=== PATIENT | male | born 1975 | race Caucasian/White ===

== ENCOUNTER 2018-09-08 18:08 | Emergency (ER) | payer SELFPAY ==
[~2018-09-08] VITALS: Ht 177.8 cm; Wt 88.5 kg
[2018-09-08] MEDS ORDERED: IOHEXOL 350 MG/ML 100 ML (OMNIPAQUE 350) VIAL IV ONE (19:00)
[2018-09-08] MEDS ORDERED: HOLD METFORMIN - RECEIVED CONTRAST 20 ML VIAL IV SCH (19:00)
[2018-09-08] MEDS ORDERED: NS 100 ML (IVPB) BAG IV ONE (19:00)
[2018-09-08] MEDS ORDERED: CATHETER FLUSH 10 ML SYR IV PRN (19:00)
[2018-09-08 19:19] LABS: MEAN CORPUSCULAR HEMOGLOBIN 37 PG (25-34); WHITE BLOOD COUNT 6.9 10^3/uL (4.3-11.0)
[2018-09-08 19:20] LABS: BASOPHILS # (AUTO) 0.1 10^3/uL (0.0-0.1); BASOPHILS % (AUTO) 1 % (0-10); EOSINOPHILS # (AUTO) 0.1 10^3/uL (0.0-0.3); EOSINOPHILS % (AUTO) 2 % (0-10); HEMATOCRIT 45 % (40-54); LYMPHOCYTES # (AUTO) 1.3 X 10^3 (1.0-4.0); LYMPHOCYTES % (AUTO) 19 % (12-44); MEAN CORPUSCULAR HGB CONC 36 G/DL (32-36); MEAN CORPUSCULAR VOLUME 103 FL (80-99); MEAN PLATELET VOLUME 9.4 FL (7.4-10.4); MONOCYTES # (AUTO) 0.6 X 10^3 (0.0-1.0); MONOCYTES % (AUTO) 8 % (0-12); NEUTROPHILS # (AUTO) 4.7 X 10^3 (1.8-7.8); NEUTROPHILS % (AUTO) 69 % (42-75); PLATELET COUNT 235 10^3/uL (130-400)
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
[2018-09-08 19:44] LABS: CARBON DIOXIDE 20 MMOL/L (21-32); CHLORIDE 101 MMOL/L (98-107); POTASSIUM 3.9 MMOL/L (3.6-5.0); SODIUM 140 MMOL/L (135-145)
[2018-09-08 19:45] LABS: ALANINE AMINOTRANSFERASE 62 U/L (0-55); ALKALINE PHOSPHATASE 81 U/L (40-136); BILIRUBIN,TOTAL 1.5 MG/DL (0.1-1.0); BUN/CREATININE RATIO 9; CALCIUM 9.5 MG/DL (8.5-10.1); CREATININE SERUM 1.39 MG/DL (0.60-1.30); GFR ESTIMATED 56; GLUCOSE 95 MG/DL (70-105); TOTAL PROTEIN 7.7 GM/DL (6.4-8.2)
[2018-09-08 19:46] LABS: ALBUMIN 4.7 GM/DL (3.2-4.5); LIPASE 73 U/L (8-78)
[2018-09-08 20:01] LABS: CLARITY,URINE CLOUDY; COLOR,URINE AMBER; GLUCOSE, URINE (UA) NEGATIVE (NEGATIVE); PROTEIN,URINE 3+ (NEGATIVE)
[2018-09-08 20:02] LABS: BACTERIA,URINE TRACE /HPF; BILIRUBIN,URINE 1+ (NEGATIVE); KETONES,URINE TRACE (NEGATIVE); LEUKOCYTE ESTERASE ,URINE 1+ (NEGATIVE); NITRITE,URINE NEGATIVE (NEGATIVE); RBC,URINE >100 /HPF; SQUAMOUS EPITHELIAL CELL,UR 0-2 /HPF; WBC,URINE >100 /HPF
[2018-09-08 20:03] LABS: CALCIUM OXALATE CRYSTALS,UR FEW /LPF
[2018-09-08] MEDS ORDERED: cefTRIAXone FOR IV USE 1,000 MG in WATER (STERILE) FOR INJECTION 10 ML IV ONE (20:15)
[2018-09-08] MEDS ORDERED: NS IV 1000 ML 1,000 ML IV SCH (20:15)
[2018-09-08] MEDS ORDERED: morphine INJ 10 MG/ML 1ML (SYR OR VIAL) IVP STA (20:16)
--- NOTE | 2018-09-08 20:20 | ED Back Pain ---
General Chief Complaint: Trauma-Non Activation Stated Complaint: PAIN IN STOMACH/GROIN AREA Nursing Triage Note: A horse fell on him one week ago and "smashed groin area." Has been having increasing pain in left thigh and left lower abdomen and groin area since that time. Has been taking 800 mg ibuprofen for pain with no relief. Has also been using ice on area which is helpful with the pain. Pain is worse with movement. Nursing Sepsis Screen: No Definite Risk Source of Information: Patient Exam Limitations: No Limitations History of Present Illness Date Seen by Provider: September 08, 2018 Time Seen by Provider: 19:15 Initial Comments Patient is a 42-year-old male who presents with flank pain rating to left pelvis , groin. Symptom onset was 4 days ago. Patient states he first noticed the symptoms after falling off a horse and the horse rolling on top of him a week ago. Patient did not seek medical care at that time. Patient has chest pain, shortness breath, abdominal pain, or extremity pain. Pain is rated moderate to severe. Patient is unable to find position of comfort. No medications or therapies taken prior to ED arrival. Timing/Duration: 5-6 Days Severity: Moderate, Severe Pain/Injury Location: Back, Pelvis Method of Injury: Fall Associated Symptoms: denies symptoms; No fever Allergies and Home Medications Allergies Coded Allergies: No Known Drug Allergies (Unverified , 09/08/18) Patient Home Medication List Home Medication List Reviewed: Yes Review of Systems Constitutional: see HPI EENTM: no symptoms reported Respiratory: no symptoms reported Cardiovascular: no symptoms reported Gastrointestinal: no symptoms reported Genitourinary: other (dark urine) Skin: no symptoms reported, see HPI Psychiatric/Neurological: No Symptoms Reported, See HPI Past Xefnrkw-[id number]-Uylqcb Hx Past Med/Social Hx: Reviewed Nursing Past Med/Soc Hx Patient Social History Alcohol Use: Regular Use Alcohol Beverage of Choice: Whiskey Recreational Drug Use: No Smoking Status: Never a Smoker 2nd Hand Smoke Exposure: No Recent Foreign Travel: No Contact w/Someone Who Travel: No Recent Infectious Disease Expo: No Physical Abuse: No Sexual Abuse: No Mistreated: No Fear: No Physical Exam Vital Signs Vital Signs - First Documented 09/08/18 18:23 Temp 97.0 Pulse 94 Resp 22 B/P (MAP) 142/100 (114) Pulse Ox 98 Capillary Refill : Less Than 3 Seconds Height, Weight, BMI Height: 5'10.00" Weight: 195lbs. oz. 88.187459sz; BMI Method:Stated General Appearance: WD/WN, Mild Distress HEENT: PERRL/EOMI, TMs Normal, Normal ENT Inspection Neck: Full Range of Motion, Normal Inspection Cardiovascular: Regular Rate, Rhythm, No Edema Respiratory: Lungs Clear Gastrointestinal: Normal Bowel Sounds, No Organomegaly, No Pulsatile Mass Genital/Rectal: Normal Genital Exam Back: Normal Inspection, No CVA Tenderness Extremity: Normal Inspection, Normal Range of Motion, Non Tender Neurologic/Psychiatric: Alert, Oriented x3 Skin: Normal Color, Warm/Dry Progress/Results/Core Measures Results/Orders Lab Results Laboratory Tests Test 09/08/18 19:10 09/08/18 19:42 Range/Units White Blood Count 6.9 4.3-11.0 10^3/uL Red Blood Count 4.33 L 4.35-5.85 10^6/uL Hemoglobin 16.0 13.3-17.7 G/DL Hematocrit 45 40-54 % Mean Corpuscular Volume 103 H 80-99 FL Mean Corpuscular Hemoglobin 37 H 25-34 PG Mean Corpuscular Hemoglobin Concent 36 32-36 G/DL Red Cell Distribution Width 13.0 10.0-14.5 % Platelet Count 235 130-400 10^3/uL Mean Platelet Volume 9.4 7.4-10.4 FL Neutrophils (%) (Auto) 69 42-75 % Lymphocytes (%) (Auto) 19 12-44 % Monocytes (%) (Auto) 8 0-12 % Eosinophils (%) (Auto) 2 0-10 % Basophils (%) (Auto) 1 0-10 % Neutrophils # (Auto) 4.7 1.8-7.8 X 10^3 Lymphocytes # (Auto) 1.3 1.0-4.0 X 10^3 Monocytes # (Auto) 0.6 0.0-1.0 X 10^3 Eosinophils # (Auto) 0.1 0.0-0.3 10^3/uL Basophils # (Auto) 0.1 0.0-0.1 10^3/uL Sodium Level 140 135-145 MMOL/L Potassium Level 3.9 3.6-5.0 MMOL/L Chloride Level 101 98-107 MMOL/L Carbon Dioxide Level 20 L 21-32 MMOL/L Anion Gap 12 5-14 MMOL/L Blood Urea Nitrogen 12 7-18 MG/DL Creatinine 1.39 H 0.60-1.30 MG/DL Estimat Glomerular Filtration Rate 56 BUN/Creatinine Ratio 9 Glucose Level 95 70-105 MG/DL Calcium Level 9.5 8.5-10.1 MG/DL Corrected Calcium 8.5-10.1 MG/DL Total Bilirubin 1.5 H 0.1-1.0 MG/DL Aspartate Amino Transf (AST/SGOT) 83 H 5-34 U/L Alanine Aminotransferase (ALT/SGPT) 62 H 0-55 U/L Alkaline Phosphatase 81 40-136 U/L Total Protein 7.7 6.4-8.2 GM/DL Albumin 4.7 H 3.2-4.5 GM/DL Lipase 73 8-78 U/L Urine Color TASNEEM H Urine Clarity CLOUDY Urine pH 6.0 5-9 Urine Specific [place] >=1.030 1.016-1.022 Urine Protein 3+ H NEGATIVE Urine Glucose (UA) NEGATIVE NEGATIVE Urine Ketones TRACE H NEGATIVE Urine Nitrite NEGATIVE NEGATIVE Urine Bilirubin 1+ H NEGATIVE Urine Urobilinogen 1.0 NORMAL MG/DL Urine Leukocyte Esterase 1+ H NEGATIVE Urine RBC (Auto) 3+ H NEGATIVE Urine RBC >100 H /HPF Urine WBC >100 H /HPF Urine Squamous Epithelial Cells 0-2 /HPF Urine Crystals PRESENT H /LPF Urine Calcium Oxalate Crystals FEW H /LPF Urine Bacteria TRACE /HPF Urine Casts NONE /LPF Urine Mucus NONE /LPF Urine Culture Indicated YES My Orders Orders - EDGAR QUEEN DO Cbc With Automated Diff (09/08/18 18:44) Comprehensive Metabolic Panel (09/08/18 18:44) Lipase (09/08/18 18:44) Ua Culture If Indicated (09/08/18 18:44) Ct Abdomen/Pelvis W (09/08/18 18:51) Iohexol Injection (Omnipaque 350 Mg/Ml 1 (09/08/18 19:00) Received Contrast (Hold Metformin- Contr (09/08/18 19:00) Sodium Chloride Flush (Catheter Flush Sy (09/08/18 19:00) Ns (Ivpb) (Sodium Chloride 0.9% Ivpb Bag (09/08/18 19:00) Creatine Kinase (09/08/18 19:45) Urine Culture (09/08/18 19:42) Ns Iv 1000 Ml (Sodium Chloride 0.9%) (09/08/18 20:15) Ceftriaxone For Iv Use (Rocephin For I (09/08/18 20:15) Blood Culture (09/08/18 20:09) Ketorolac Injection (Toradol Injection) (09/08/18 20:30) Morphine Injection (Morphine Injection (09/08/18 20:16) Ondansetron Injection (Zofran Injectio (09/08/18 20:30) Blood Culture (09/08/18 20:29) Medications Given in ED Current Medications Medications Dose Ordered Sig/Rudy Route Start Time Stop Time Status Last Admin Dose Admin Iohexol 100 ml ONCE ONCE IV 09/08/18 19:00 09/08/18 19:01 DC 09/08/18 19:24 100 ML Sodium Chloride 10 ml NEEDED PRN IV 09/08/18 19:00 09/08/18 19:24 10 ML Sodium Chloride 100 ml ONCE ONCE IV 09/08/18 19:00 09/08/18 19:01 DC 09/08/18 19:24 100 ML Vital Signs/I&O 09/08/18 18:23 Temp 97.0 Pulse 94 Resp 22 B/P (MAP) 142/100 (114) Pulse Ox 98 Blood Pressure Mean: 114 Departure Communication (Admissions) CT abdomen and pelvis with IV contrast: 12 mm proximal ureteral/renal pelvic stone with moderate hydronephrosis and periureteral stranding. IV fluids, pain medication and antibiotics given. Patient accepted for transfer [facility] at. Impression Primary Impression: Back pain Additional Impression: Ureteral obstruction, left Disposition: [facility] Condition: Stable Transfer Time Spoke to Accepting Phy: 20:42 Transfer Progress Notes Patient accepted by Dr. Milton Lee Method of Transfer: Private Vehicle Departure-Patient Inst. Referrals: LEAH VENCES DO (PCP/Family) Primary Care Physician EDGAR QUEEN DO September 08, 2018 20:20
[2018-09-08] MEDS ORDERED: KETOROLAC 30 MG/ML VIAL IVP ONE (20:30)
[2018-09-08] MEDS ORDERED: ONDANSETRON 4 MG/2 ML (SDV) Z0FRAN IVP ONE (20:30)
--- NOTE | 2018-09-08 20:45 | NUR ---
Patient refused pain medication at this time. Patient currently rates pain at a 0.
[2018-09-08 21:29] VITALS: BP 130/96
--- NOTE | 2018-09-08 21:29 | NUR ---
Patient was accepted to [facility] and report was given to Areli CARMEN at 2110. Patient refuses to go by EMS. Patient wants to go POV. Risks and benefits are explained and patient acknowledges his understanding verbally. IV is removed and paperwork is signed.
== END 2018-09-08 21:29 | disposition short-term general hospital (02) ==
LOC: ER FS 18:11
DX: M54.5 Low back pain (principal); N13.1 Hydronephrosis with ureteral stricture, not elsewhere classified; V80.010A Animal-rider injured by fall from or being thrown from horse in noncollision accident, initial encounter
CPT/HCPCS: 36415; 74177; 80053; 81000; 82550; 83690; 85025; 87040; 87088; 96374

== ENCOUNTER 2021-05-23 05:25 | Emergency (ER) | payer SELFPAY ==
[~2021-05-23] VITALS: Ht 178 cm; Wt 85.7 kg
[2021-05-23] MEDS ORDERED: ROCURONIUM 10 MG/ML 5 ML SYRINGE IV ONE (05:29)
[2021-05-23] MEDS ORDERED: ETOMIDATE IV SOLN 20 MG/10 ML VIAL IV ONE (05:29)
[2021-05-23] MEDS ORDERED: MIDAZOLAM 5 MG/5 ML (VERSED) VIAL IJ ONE (05:29)
--- OUTSIDE RECORDS SUMMARY | 2021-05-23 05:32 | XMS REPORT | Encounter Summary ---
Author Author [facility] Organization [facility] Address Unknown Phone Unavailable Care Team Providers Care Veneer Glue Spreader Name Role Phone JeronimoRey cifuentes DO [phone] JeronimoRey cifuentes PCP Reason for Visit * Reason Onset Date Comments Referral 04/30/2021 Encounter Details Care Team Description Date Type Department Unknown, Unknown, MD Referral 04/30/2021 Telephone Hepatology: Main [facility], [facility] [address] [place] [address] Social History Date Tobacco Use Types Packs/Day Years Used Former Smoker Cigarettes Smokeless Tobacco: Chew Current User Comments Alcohol Use Standard Drinks/Week Yes 0 (1 standard drink = 0.6 o z pure alcohol) Sex Assigned at Date Recorded Not on file documented as of this encounter Miscellaneous Notes * Telephone Encounter - Lisa Vang - 05/19/2021 2:00 PM [employer] Called [phone] - # not in Service, called [phone] - Person who answere d said John does not live there. Called Neftali Rosalba Left message with him to fady arthur patent call me back to schedule appt. [employer] * Telephone Encounter - Meena Mario - 05/14/2021 11:57 AM [employer] READY TO SCHED NEXT AVAIL LT STONER [employer] * Telephone Encounter - Patience Pérez RN - 04/30/2021 12:17 PM [employer] Hepatology Referral Summary John Navarrete, 1975, [id number] Reason for Visit/Diagnosis: Transaminitis HPI Summary: Pt seen in f/u w/ PCP. Hx of elevated LFTs and ETOH use, whiskey before b ed. Pt reports emotional lability and insomnia. Labs: In Outside Records Scanned 04/30/21 > pg 9 CBC, CMP and Lipids Radiology/Facility: N/A Pathology/Facility: N/A Endoscopy/Facility: N/A Appointment Needs -- - Provider: Next Available, - Urgency: Next Available - Department: LTC - Other: None Insurance: No billing information found for this encounter. Provider Info -- Referring: Rey Tapia DO [address] [place] [address] PCP: Rey Tapia [address] [place] [id number] [employer] * Telephone Encounter - Meena Mario - 04/30/2021 11:56 AM [employer] Received new referral via fax. Docs scanned in 04/30.. REQ URGENT [employer] documented in this encounter Plan of Treatment Not on filedocumented as of this encounter Visit Diagnoses Not on filedocumented in this encounter Care Teams Start Date End Date Veneer Glue Spreader Relationship Specialty 04/30/21 Rey Tapia DO PCP - General [address] [address] 04/30/21 Rey Tapia DO REFERRING [address] [address] documented as of this encounter
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
[2021-05-23] MEDS ORDERED: HOLD METFORMIN - RECEIVED CONTRAST 20 ML VIAL IV SCH (05:45)
[2021-05-23] MEDS ORDERED: CATHETER FLUSH 10 ML SYR IV PRN (05:45)
[2021-05-23] MEDS ORDERED: NS IV 1000 ML 1,000 ML IV SCH (05:45)
[2021-05-23] MEDS ORDERED: NS 100 ML (IVPB) BAG IV ONE (05:45)
[2021-05-23] MEDS ORDERED: ONDANSETRON 4 MG/2 ML (SDV) Z0FRAN IV ONE (05:45)
[2021-05-23] MEDS ORDERED: IOHEXOL 350 MG/ML 100 ML (OMNIPAQUE 350) VIAL IV ONE (05:45)
[2021-05-23 05:47] LABS: HEMATOCRIT 36 % (40-54); HEMOGLOBIN 12.5 g/dL (13.3-17.7); MEAN CORPUSCULAR HEMOGLOBIN 37 pg (25-34); MEAN CORPUSCULAR HGB CONC 35 g/dL (32-36); MEAN CORPUSCULAR VOLUME 106 fL (80-99); MEAN PLATELET VOLUME 9.3 fL (9.0-12.2); PLATELET COUNT 150 10^3/uL (130-400)
[2021-05-23 05:48] LABS: BASOPHILS # (AUTO) 0.1 10^3/uL (0.0-0.1); BASOPHILS % (AUTO) 1 % (0-10); EOSINOPHILS % (AUTO) 0 % (0-10); LYMPHOCYTES % (AUTO) 8 % (12-44); MONOCYTES # (AUTO) 0.6 X 10^3 (0.0-1.0); MONOCYTES % (AUTO) 5 % (0-12); NEUTROPHILS # (AUTO) 10.1 X 10^3 (1.8-7.8); NEUTROPHILS % (AUTO) 85 % (42-75)
[2021-05-23 05:55] LABS: PROTHROMBIN TIME PATIENT 13.2 SEC (12.2-14.7)
[2021-05-23 06:03] LABS: ALANINE AMINOTRANSFERASE 94 U/L (0-55); ALBUMIN 4.5 GM/DL (3.2-4.5); ALKALINE PHOSPHATASE 395 U/L (40-136); BILIRUBIN,TOTAL 4.2 MG/DL (0.1-1.0); BUN/CREATININE RATIO 10; CALCIUM 8.9 MG/DL (8.5-10.1); CARBON DIOXIDE 23 MMOL/L (21-32); CHLORIDE 97 MMOL/L (98-107); GFR ESTIMATED 112; GLUCOSE 195 MG/DL (70-105); POTASSIUM 3.1 MMOL/L (3.6-5.0); SODIUM 142 MMOL/L (135-145)
--- NOTE | 2021-05-23 06:11 | ED General ---
General Chief Complaint: Altered Mental Status Stated Complaint: NON RESPONSIVE Nursing Triage Note: Pt presents to ED per POV, unresponsive. Staff to vehicle to help get pt into wheelchair. To ED 3, and lifted to stretcher attached to cardiac care nurse. Pt remains unresponsive. HOB up. Temperature 30.3 C. Warm blankets to pt. Source of Information: Other (significant other) Exam Limitations: Physical Impairments (pt unresponsive) History of Present Illness Date Seen by Provider: May 23, 2021 Time Seen by Provider: 05:25 Initial Comments 45-year-old male brought in by his fiance by private vehicle. 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 She stated that he did not lose consciousness. He had finished his work with the [employer] and been doing fine in the afternoon and evening. Around midnight he was awake and was not breathing right for his fiance. She stated that she never had him completely wake up for her after that and she was rubbing his back and chest to try and help his breathing. He had some emesis of frothy sputum a few times. She states that he also had urinated on himself at least twice. She had her his brother help get him to the car so that they could bring him to the emergency department. He was not helping at all and was not responsive here in the emergency department. She states that he does not take aspirin or any blood thinners. He does have a history of high cholesterol and hypothyroid. He has no known allergies as far she is aware. Associated Systoms: Nausea/Vomiting (vomiting up frothy sputum since midnight) Allergies and Home Medications Allergies Coded Allergies: No Known Drug Allergies (Unverified , 09/08/18) Patient Home Medication List Home Medication List Reviewed: Yes Review of Systems Review of Systems Constitutional: chills (cool to touch) EENTM: other (bruising to right forehead); No ear discharge, No epistaxis, No nose congestion Respiratory: No phlegm, No short of breath Cardiovascular: no symptoms reported Gastrointestinal: see HPI Genitourinary: see HPI Musculoskeletal: other (struck by cow yesterday afternoon) Skin: change in color (bruise to right forehead and left shoulder) Psychiatric/Neurological: See HPI Hematologic/Lymphatic: Denies Blood Clots, Denies Easy Bleeding, Denies Easy Bruising ROS obtained from fianc as patient was unresponsive and not able to answer que [place] Past Sdkhxbg-Xqfsgu-Ceptes Hx Past Medical History Surgery/Hospitalization HX: Hypercholesterolemia and hypothyroid Physical Exam Vital Signs Vital Signs - First Documented 05/23/21 05/23/21 05:25 06:55 Temp 30.3 Pulse 54 Resp 16 B/P (MAP) 116/56 Pulse Ox 94 O2 Delivery Ambu Bag O2 Flow Rate 15.00 Capillary Refill : Less Than 3 Seconds Height, Weight, BMI Height: 5'10.00" Weight: 195lbs. oz. 88.507142ke; 27.00 BMI Method:Stated General Appearance: Other (decreased responsiveness with sonorous respirations) Eyes: Bilateral Eye PERRL (3 mm bilaterally) HEENT: PERRL/EOMI, TMs Normal, Moist Mucous Membranes, Other (no hemotympanum, no CSF otorrhea, rhinorrhea. Negative Moncada sign/Raccoon sign) Neck: Other (when patient arrived he was moving his neck around and would move his head but was not having purposeful movements) Respiratory: Chest Non Tender, No Accessory Muscle Use, No Respiratory Distress, Decreased Breath Sounds, Other (sonorous respirations) Cardiovascular: Normal Peripheral Pulses, Bradycardia Gastrointestinal: Normal Bowel Sounds, No Pulsatile Mass, Non Tender, Soft Rectal: Deferred Extremity: No Pedal Edema, Slow Capillary Refill (3-4 seconds) Neurologic/Psychiatric: No Alert (somnolent), No Oriented x3 (not able to answer any orientation questions); Other (patient is somnolent with sonorous respirations. not having purposeful movements. not responding to painful stimu li) Skin: Cool; No Diaphoresis; Ecchymosis (right forehead, left shoulder) Comments GCS was 5 Eye was 1 Verbal 2 Motor 2 extension to pain Procedures/Interventions Reason for Intubation: Intracranial hemorrhage with decreased mental status Date of ETT Placement: May 23, 2021 Time of ETT Placement: 06:45 Intubation Method: orotracheal Tube Size: 7.5 Medications: Etomidate, Rocuronium, Versed Positive End Tide CO2: Yes Breath Sounds after Intubation: bilateral-equal Intubation Complications: oral-unsuccessful attempt (x1 Cords were not visualized on first attempt so tube not advanced.) Post Intubation Xray: Yes ETT in place with tip above claire Progress/Results/Core Measures Suspected Sepsis SIRS Temperature: Pulse: 54 Respiratory Rate: 16 Laboratory Tests 05/23/21 05:30: White Blood Count 12.0H Blood Pressure / Mean: Laboratory Tests 05/23/21 05:30: Creatinine 0.80, INR Comment 1.0, Platelet Count 150, Total Bilirubin 4.2H Results/Orders Lab Results Laboratory Tests Test 05/23/21 05:30 05/23/21 05:32 05/23/21 06:40 Range/Units White Blood Count 12.0 H 4.3-11.0 10^3/uL Red Blood Count 3.38 L 4.30-5.52 10^6/uL Hemoglobin 12.5 L 13.3-17.7 g/dL Hematocrit 36 L 40-54 % Mean Corpuscular Volume 106 H 80-99 fL Mean Corpuscular Hemoglobin 37 H 25-34 pg Mean Corpuscular Hemoglobin Concent 35 32-36 g/dL Red Cell Distribution Width 13.9 10.0-14.5 % Platelet Count 150 130-400 10^3/uL Mean Platelet Volume 9.3 9.0-12.2 fL Immature Granulocyte % (Auto) 1 % Neutrophils (%) (Auto) 85 H 42-75 % Lymphocytes (%) (Auto) 8 L 12-44 % Monocytes (%) (Auto) 5 0-12 % Eosinophils (%) (Auto) 0 0-10 % Basophils (%) (Auto) 1 0-10 % Neutrophils # (Auto) 10.1 H 1.8-7.8 X 10^3 Lymphocytes # (Auto) 1.0 1.0-4.0 X 10^3 Monocytes # (Auto) 0.6 0.0-1.0 X 10^3 Eosinophils # (Auto) 0.0 0.0-0.3 10^3/uL Basophils # (Auto) 0.1 0.0-0.1 10^3/uL Immature Granulocyte # (Auto) 0.2 H 0.0-0.1 10^3/uL Neutrophils % (Manual) 84 % Lymphocytes % (Manual) 10 % Monocytes % (Manual) 5 % Band Neutrophils 1 % Toxic Granulation 4+ Prothrombin Time 13.2 12.2-14.7 SEC INR Comment 1.0 0.8-1.4 Activated Partial Thromboplast Time 29 24-35 SEC Sodium Level 142 135-145 MMOL/L Potassium Level 3.1 L 3.6-5.0 MMOL/L Chloride Level 97 L 98-107 MMOL/L Carbon Dioxide Level 23 21-32 MMOL/L Anion Gap 22 H 5-14 MMOL/L Blood Urea Nitrogen 8 7-18 MG/DL Creatinine 0.80 0.60-1.30 MG/DL Estimat Glomerular Filtration Rate 112 BUN/Creatinine Ratio 10 Glucose Level 195 H 70-105 MG/DL Calcium Level 8.9 8.5-10.1 MG/DL Corrected Calcium 8.5 8.5-10.1 MG/DL Total Bilirubin 4.2 H 0.1-1.0 MG/DL Aspartate Amino Transf (AST/SGOT) 299 H 5-34 U/L Alanine Aminotransferase (ALT/SGPT) 94 H 0-55 U/L Alkaline Phosphatase 395 H 40-136 U/L Troponin I < 0.30 <0.30 NG/ML C-Reactive Protein 1.01 H <0.50 MG/DL Pro-B-Type Natriuretic Peptide 108.6 H <75.0 PG/ML Total Protein 8.0 6.4-8.2 GM/DL Albumin 4.5 3.2-4.5 GM/DL Serum Alcohol 218 H <10 MG/DL Glucometer 187 H 70-110 MG/DL Urine Color DARK YELLOW Urine Clarity CLEAR Urine pH 6.5 5-9 Urine Specific [place] 1.010 L 1.016-1.022 Urine Protein TRACE H NEGATIVE Urine Glucose (UA) TRACE H NEGATIVE Urine Ketones TRACE H NEGATIVE Urine Nitrite NEGATIVE NEGATIVE Urine Bilirubin 1+ H NEGATIVE Urine Urobilinogen 2.0 < = 1.0 MG/DL Urine Leukocyte Esterase NEGATIVE NEGATIVE Urine RBC (Auto) 3+ H NEGATIVE Urine RBC >100 H /HPF Urine WBC NONE /HPF Urine Squamous Epithelial Cells NONE /HPF Urine Crystals NONE /LPF Urine Bacteria TRACE /HPF Urine Casts PRESENT /LPF Urine Hyaline Casts 0-2 H /LPF Urine Mucus LARGE H /LPF Urine Culture Indicated NO Urine Opiates Screen NEGATIVE NEGATIVE Urine Oxycodone Screen NEGATIVE NEGATIVE Urine Methadone Screen NEGATIVE NEGATIVE Urine Propoxyphene Screen NEGATIVE NEGATIVE Urine Barbiturates Screen NEGATIVE NEGATIVE Ur Tricyclic Antidepressants Screen NEGATIVE NEGATIVE Urine Phencyclidine Screen NEGATIVE NEGATIVE Urine Amphetamines Screen NEGATIVE NEGATIVE Urine Methamphetamines Screen NEGATIVE NEGATIVE Urine Benzodiazepines Screen NEGATIVE NEGATIVE Urine Cocaine Screen NEGATIVE NEGATIVE Urine Cannabinoids Screen POSITIVE H NEGATIVE My Orders Orders - ENYART,VERA E MD Monitor-Rhythm Ecg Trace Only (05/23/21 05:34) Ed Iv/Invasive Line Start (05/23/21 05:34) Cbc With Automated Diff (05/23/21 05:34) Comprehensive Metabolic Panel (05/23/21 05:34) Crp Fs (05/23/21 05:34) Troponin I Fs (05/23/21 05:34) Protime With Inr (05/23/21 05:34) Partial Thromboplastin Time (05/23/21 05:34) Ekg Tracing (05/23/21 05:34) Arterial Blood Gas (05/23/21 05:34) Ns Iv 1000 Ml (Sodium Chloride 0.9%) (05/23/21 05:45) Ondansetron Injection (Zofran Injectio (05/23/21 05:45) Ct Head/Cervical Spine Wo (05/23/21 05:34) Chest 1 View Ap/Pa Only (05/23/21 05:34) Accucheck Stat ONCE (05/23/21 05:34) Ua Culture If Indicated (05/23/21 05:34) Drug Screen Stat (Urine) (05/23/21 05:34) Alcohol (05/23/21 05:34) Probnp Fs (05/23/21 05:34) [place] Cath (05/23/21 05:37) O2 (05/23/21 05:37) Ct Chest/Abdomen/Pelvis W (05/23/21 05:38) Iohexol Injection (Omnipaque 350 Mg/Ml 1 (05/23/21 05:45) Received Contrast (Hold Metformin- Contr (05/23/21 05:45) Sodium Chloride Flush (Catheter Flush Sy (05/23/21 05:45) Ns (Ivpb) (Sodium Chloride 0.9% Ivpb Bag (05/23/21 05:45) Manual Differential (05/23/21 05:30) Medications Given in ED Current Medications Medications Dose Ordered Sig/Rudy Route Start Time Stop Time Status Last Admin Dose Admin Iohexol 100 ml ONCE ONCE IV 05/23/21 05:45 05/23/21 05:48 DC 05/23/21 06:25 100 ML Ondansetron HCl 4 mg ONCE ONCE IV 05/23/21 05:45 05/23/21 05:46 DC 05/23/21 05:41 4 MG Sodium Chloride 10 ml NEEDED PRN IV 05/23/21 05:45 05/23/21 07:19 DC 05/23/21 06:26 10 ML Sodium Chloride 100 ml ONCE ONCE IV 05/23/21 05:45 05/23/21 05:48 DC 05/23/21 06:26 100 ML Vital Signs/I&O 05/23/21 05/23/21 05:25 06:55 Temp 30.3 35.8 Pulse 54 94 Resp 16 14 B/P (MAP) 116/56 Pulse Ox 94 98 O2 Delivery Ambu Bag O2 Flow Rate 15.00 Capillary Refill : Less Than 3 Seconds Point of Care Testing Finger Stick Blood Glucose: 187 Progress Note #1: Progress Note Multiple labs and imaging tests were ordered on patient arrival. Based on his history there was concern for intracranial hemorrhage and trauma. Patient was maintaining his airway on arrival with stable vital signs. Progress Note #2: Time: 05:55 Progress Note Patient was in CT scan and when I saw that he had a large amount of intracranial hemorrhage and midline shift I immediately went to talk to the fianc and family to let them know that he needed to get to a trauma center as soon as possible and to find out where he is and they wanted me to try calling. They wanted to have him try and go north towards [place]. [phone] call placed to [facility] access center and spoke with Bijal CARMEN. She connected me with Dr. Telles with the [facility] emergency department. he accepted the patient for transfer for trauma services and neurosurgery at [phone] Helicopter services were contacted but none of them would be available until after 7 AM. Local EMS [facility] was contacted to assist with the transfer to try and get him to [facility] faster.. Progress Note #3: Time: 06:45 Progress Note Patient intubated on second attempt by color worker. 7.5 ET tube was placed. Patient had equal breath sounds and positive color change with the end-tidal CO2. Tube was secured and chest x-ray help to confirm placement. It did look like it was a little high above the claire so it was advanced approximately 2 cm. NG tube was placed prior to transfer. [facility] took the patient to [facility] by ground and left the department at [phone] Labs did show that he had an elevated alcohol level. He had findings of bleeding and midline shift in his CT scan of his head. His coags were normal. He remained hemodynamically stable during his ED stay. Progress Note #4: Progress Note Shortly after patient left with EMS the radiologist called back about the CT scanning of his head. They had tried calling while I was in the room working with the patient. He notified me of the findings of large amount of intracranial hemorrhage and midline shift. No acute findings on other CT scans. Will fax reports to [facility] access center for [facility]. ECG Initial ECG Impression Date: May 23, 2021 Initial ECG Impression Time: 05:28 Initial ECG Rate: 52 Initial ECG Rhythm: Normal Sinus Initial ECG Comparisson: No Previous ECG Available Comment Sinus rhythm with a heart rate of 52 bpm. Borderline prolonged IA interval of [address] elevation. There is some artifact on the tracing. QT interval 486 ms with a QTc interval 452 ms. There is no prior tracing available for comparison. Diagnostic Imaging Diagonstic Imaging: CT Plain Films/CT/US/NM/MRI: c-spine, head Comments [facility]. [place], [place] NAME: ASHLEE RIVERA [facility] REC#: [id number] PT STATUS: REG ER : 1975 PHYSICIAN: VERA HERNANDEZ MD ADMIT DATE: 05/23/21/ER FS Draft Date of Exam:05/23/21 CT HEAD/CERVICAL SPINE WO PROCEDURE: CT head and CT cervical spine without contrast. TECHNIQUE: Multiple contiguous axial images were obtained through the brain and cervical spine without the use of intravenous contrast. Sagittal and coronal reformations through the cervical spine were then performed. Auto Exposure Controls were utilized during the CT exam to meet ALARA standards for radiation dose reduction. INDICATION: Trauma. Head and neck pain. Hit on head by a cow. FINDINGS: There is a large intra-axial hemorrhage demonstrated within the anterior aspect of the right frontal lobe that measures up to 11.3 cm AP by 7.8 cm transverse by 5.1 cm craniocaudal. There additionally is intraventricular hemorrhage demonstrated within the lateral 3rd and 4th ventricles. There is left to right midline shift secondary to the hematoma with associated subfalcine herniation. This shift measures 2.3 cm at its maximum. There is mild prominence of the left lateral ventricle, likely reflecting early entrapment. Other than the hemorrhage, there is no significant loss of bridges-white differentiation. There are a few small foci of likely subarachnoid blood overlying the high left frontal and parietal convexities. There is no identified calvarial fracture. The mastoids are clear. There is mild mucosal thickening in the left maxillary sinus. There is no air-fluid level. The orbital contents are unremarkable. Cervical spine demonstrates normal alignment. There are normal relationships of the craniocervical junction. There are normal relationships of the lateral masses at C1 and C2. The facets are normally aligned. There is no facet joint or disc space widening. The vertebral body heights are maintained. There is no acute cervical spine fracture. There are no findings of high-grade canal stenosis. The lung apices are clear. The soft tissues of the neck demonstrate no acute process. IMPRESSION: 1. Large hyperdense right frontal hematoma which appears to likely be intra-axial in location. This measures up to 11.3 x 7.8 x 5.1 cm. This results in subfalcine herniation with 2.3 cm of [id number] midline shift. 2. There is extension into the ventricular system with early developing entrapment of the left lateral ventricle. 3. Minimal subarachnoid hemorrhage demonstrated within the left frontal and parietal lobes at the high vertex. 4. No territorial loss of bridges-white differentiation. 5. No calvarial fracture. 6. No acute fracture or malalignment within the cervical spine. Dictated on workstation # [id number] Dict: 05/23/21 0623 Trans: 05/23/21 0652 [facility] [id number] Interpreted by: SACHIN FONG MD Electronically signed by: Reviewed: Reviewed by Me, Discussed w/Radiologist Diagonstic Imaging: CT Plain Films/CT/US/NM/MRI: chest, abdomen, pelvis Comments [facility] [place] [place] NAME: ASHLEE RIVERA Dolores [facility] REC#: [id number] PT STATUS: REG ER : 1975 PHYSICIAN: VERA HERNANDEZ MD ADMIT DATE: 05/23/21/ER FS Draft Date of Exam:05/23/21 CT CHEST/ABDOMEN/PELVIS W PROCEDURE: CT chest, abdomen, and pelvis with contrast. TECHNIQUE: Multiple contiguous axial images were obtained through the chest, abdomen, and pelvis after the administration of intravenous contrast. Auto Exposure Controls were utilized during the CT exam to meet ALARA standards for radiation dose reduction. INDICATION: Trauma. Chest and abdomen pain. Hit by a cow. COMPARISON made with a prior study from 09/08/2018. FINDINGS: The lungs demonstrate no findings of a pneumothorax or pleural collection. There is no dense consolidation or findings to suggest pneumonia or contusion. The thoracic aorta is unremarkable. There is no mediastinal hematoma or pericardial collection. The central pulmonary arteries demonstrate no filling defect. There are remote healed posterior fractures of the 10th and 11th ribs. No acute rib fractures are evident. There is no sternal fracture or evidence of a fracture involving the shoulder girdle. There is no glenohumeral joint dislocation. There is diffuse hepatic steatosis. There are no findings of a liver laceration or adjacent perihepatic fluid or blood. The gallbladder is nondistended. There is no biliary dilatation. The portal veins appear patent. The pancreas is unremarkable. 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 There is no splenic laceration or adjacent tanner-splenic fluid or blood. There is no adrenal hematoma. The kidneys enhance normally and demonstrate normal contrast excretion. There is no renal laceration. There are no findings of bowel obstruction or abnormal bowel thickening. There is no free fluid or hemoperitoneum within the pelvis. The bladder is unremarkable. There are no findings of a pelvic fracture or pelvic diastasis. There is no hip dislocation. Alignment of the thoracic and lumbar spine are normal. The vertebral body heights are maintained. The facets are normally aligned. There is no facet joint or disc space widening. No acute spinal fractures are evident. There are no findings to suggest high-grade canal stenosis IMPRESSION: 1. No CT findings of an acute traumatic injury within the chest, abdomen or pelvis. 2. Remote left posterior 10th and 11th rib fractures. 3. The lungs appear clear. 4. No vascular injury. 5. No pneumothorax. 6. No solid organ laceration or evidence of hemoperitoneum. 7. Hepatic steatosis. 8. No acute inflammatory or obstructive process. Dictated on workstation # [id number] Dict: 05/23/21 0650 Trans: 05/23/21 0702 [facility] [id number] Interpreted by: SACHIN FONG MD Electronically signed by: Reviewed: Reviewed by Me Diagonstic Imaging: Xray Plain Films/CT/US/NM/MRI: chest Comments [facility] [place] [place] NAME: ASHLEE RIVERA [facility] REC#: [id number] PT STATUS: REG ER : 1975 PHYSICIAN: VERA HERNANDEZ MD ADMIT DATE: 05/23/21/ER FS Draft Date of Exam:05/23/21 CHEST 1 VIEW AP/PA ONLY INDICATION: Endotracheal tube placement. TIME OF EXAM: 6:43 AM ET tube has tip above the claire. There is widening of the mediastinum, with ill definition of the aortic knob. CT would be recommended. There is central congestion. No effusion or pneumothorax is seen. IMPRESSION: 1. There is abnormal widening of the mediastinum with poorly defined aortic knob. Correlation with CT chest would be recommended. Otherwise, the chest radiograph is unremarkable. Dictated on workstation # [id number] Dict: 05/23/21 0652 Trans: 05/23/21 0710 [facility] [id number] Interpreted by: FRANCESCA BERRY MD Electronically signed by: Reviewed: Reviewed by Me Critical Care Note Critical Care Total Time (minutes) 50 minutes Progress A total of 50 minutes of critical care time was spent with the patient. Time was excluding separately billable procedures. Time was spent obtaining history from medical records, family, significant other, ordering test and reviewing results, ordering interventions and reviewing response, discussion with consultants, documentation in the chart. Patient was at imminent risk of card iopulmonary arrest and further neurologic compromise with large intracranial hemorrhage and decreased GCS. He required my constant direct supervision and intervention to maintain his stable medical condition. Departure Impression Primary Impression: Midline shift of brain due to hematoma Additional Impressions: Subarachnoid hemorrhage following injury Qualified Codes: S06.6X0A - Traumatic subarachnoid hemorrhage without loss of consciousness, initial encounter Traumatic intraventricular hemorrhage Alcohol intoxication Qualified Codes: F10.929 - Alcohol use, unspecified with intoxication, unspecified Disposition: XFER SHT-TRM HOSP Condition: Critical Transfer Transfer Reason: Exceeds level of care (trauma and neurosurgery) Time Spoke to Accepting Phy: 06:06 Transfer Progress Notes Discussed with Dr. Telles at the emergency department at [facility]. He accepted the patient for transfer for the trauma and neurosurgery services. Transfer Facility: [facility] Method of Transfer: EMS Departure-Patient Inst. Referrals: LEAH VENCES DO (PCP/Family) Primary Care Physician VERA HERNANDEZ MD May 23, 2021 06:11
[2021-05-23 06:23] LABS: BAND NEUTROPHILS 1 %; LYMPHOCYTES % (MANUAL) 10 %; MONOCYTES % (MANUAL) 5 %; NEUTROPHILS % (MANUAL) 84 %; TOXIC GRANULATION/VACUOLAZATIO 4+
--- NOTE | 2021-05-23 06:52 | Diagnostic Imaging Report ---
PROCEDURE: CT head and CT cervical spine without contrast. TECHNIQUE: Multiple contiguous axial images were obtained through the brain and cervical spine without the use of intravenous contrast. Sagittal and coronal reformations through the cervical spine were then performed. Auto Exposure Controls were utilized during the CT exam to meet ALARA standards for radiation dose reduction. INDICATION: Trauma. Head and neck pain. Hit on head by a cow. FINDINGS: There is a large intra-axial hemorrhage demonstrated within the anterior aspect of the right frontal lobe that measures up to 11.3 cm AP by 7.8 cm transverse by 5.1 cm craniocaudal. There additionally is intraventricular hemorrhage demonstrated within the lateral 3rd and 4th ventricles. There is left to right midline shift secondary to the hematoma with associated subfalcine herniation. This shift measures 2.3 cm at its maximum. There is mild prominence of the left lateral ventricle, likely reflecting early entrapment. Other than the hemorrhage, there is no significant loss of bridges-white differentiation. There are a few small foci of likely subarachnoid blood overlying the high left frontal and parietal convexities. There is no identified calvarial fracture. The mastoids are clear. There is mild mucosal thickening in the left maxillary sinus. There is no air-fluid level. The orbital contents are unremarkable. Cervical spine demonstrates normal alignment. There are normal relationships of the craniocervical junction. There are normal relationships of the lateral masses at C1 and C2. The facets are normally aligned. There is no facet joint or disc space widening. The vertebral body heights are maintained. There is no acute cervical spine fracture. There are no findings of high-grade canal stenosis. The lung apices are clear. The soft tissues of the neck demonstrate no acute process. IMPRESSION: 1. Large hyperdense right frontal hematoma which appears to likely be intra-axial in location. This measures up to 11.3 x 7.8 x 5.1 cm. This results in subfalcine herniation with 2.3 cm of [id number] midline shift. 2. There is extension into the ventricular system with early developing entrapment of the left lateral ventricle. 3. Minimal subarachnoid hemorrhage demonstrated within the left frontal and parietal lobes at the high vertex. 4. No territorial loss of bridges-white differentiation. 5. No calvarial fracture. 6. No acute fracture or malalignment within the cervical spine. Dictated by: Dictated on workstation # [id number]
[2021-05-23 06:55] VITALS: BP 116/56
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
[2021-05-23 07:06] LABS: CLARITY,URINE CLEAR; COLOR,URINE DARK YELLOW; GLUCOSE, URINE (UA) TRACE (NEGATIVE); KETONES,URINE TRACE (NEGATIVE); NITRITE,URINE NEGATIVE (NEGATIVE); PH,URINE 6.5 (5-9); PROTEIN,URINE TRACE (NEGATIVE)
[2021-05-23 07:07] LABS: BACTERIA,URINE TRACE /HPF; BILIRUBIN,URINE 1+ (NEGATIVE); HYALINE CASTS, URINE 0-2 /LPF; LEUKOCYTE ESTERASE ,URINE NEGATIVE (NEGATIVE); RBC,URINE >100 /HPF
--- NOTE | 2021-05-23 07:10 | Diagnostic Imaging Report ---
INDICATION: Endotracheal tube placement. TIME OF EXAM: 6:43 AM ET tube has tip above the claire. There is widening of the mediastinum, with ill definition of the aortic knob. CT would be recommended. There is central congestion. No effusion or pneumothorax is seen. IMPRESSION: 1. There is abnormal widening of the mediastinum with poorly defined aortic knob. Correlation with CT chest would be recommended. Otherwise, the chest radiograph is unremarkable. Dictated by: Dictated on workstation # [id number]
[2021-05-23 07:11] LABS: AMPHETAMINE SCREEN, URINE NEGATIVE (NEGATIVE); BARBITURATE SCREEN URINE NEGATIVE (NEGATIVE); BENZODIAZEPINES SCREEN URINE NEGATIVE (NEGATIVE); CANNABINOID SCREEN, URINE POSITIVE (NEGATIVE); COCAINE SCREEN URINE NEGATIVE (NEGATIVE); METHADONE STAT NEGATIVE (NEGATIVE); METHAMPHETAMINE SCREEN URINE S NEGATIVE (NEGATIVE); OPIATE SCREEN URINE NEGATIVE (NEGATIVE); OXYCODONE STAT NEGATIVE (NEGATIVE); PROPOXYPHENE STAT NEGATIVE (NEGATIVE); TRICYCLIC ANTIDEPRESSANTS SCRE NEGATIVE (NEGATIVE)
== END 2021-05-23 06:55 | disposition short-term general hospital (02) ==
LOC: EDUNIT# 05:25 → ER FS 05:28
DX: S06.6X0A Traumatic subarachnoid hemorrhage without loss of consciousness, initial encounter (principal); S00.83XA Contusion of other part of head, initial encounter; S40.012A Contusion of left shoulder, initial encounter; F10.129 Alcohol abuse with intoxication, unspecified; W55.22XA Struck by cow, initial encounter
CPT/HCPCS: 36415; 51702; 70450; 71045; 71260; 72125; 74177; 80053; 80306; 81000; 82947; 83880; 84484; 85007; 85027; 85610; 85730; 86141; 93005; 93041; 96374; 99284; G0480; 80320